=== PATIENT | female | born 1990 ===

== ENCOUNTER 2024-08-22 03:07 | Outpatient (CLI) | payer OTHER, SELFPAY ==
[2024-08-22] MEDS: Inhaler, Assist Device 1 EACH MC (14:15)
[2024-08-22] MEDS: Levalbuterol HFA 15 GM INH 4 PUFF IH (14:15)
--- NOTE | 2024-08-23 12:12 | W.PFT ---
Date of service: 08/22/24 Time of Service: 13:05 Pulmonary Function Test Result Indications: Asthma Interpretation Spirometry: There is no airflow limitation. No bronchodilator response. Impression Normal spirometry Clinical Correlation therefore is recommended.
== END 2024-08-22 03:08 | disposition home or self-care (01) ==
LOC: RT 03:07
PROVIDERS: Visit Provider Student in an Organized Health Care Education/Training Program
DX: J45.909 Unspecified asthma, uncomplicated (principal)
CPT/HCPCS: 94060